=== PATIENT | female | born 1995 | race Caucasian/White ===

== ENCOUNTER 2017-07-11 07:42 | Outpatient (CLI) | payer OTHER ==
[~2017-07-11 07:42] MED LIST: ROBITUSSIN7.4 MG MM
== END 2017-07-11 13:56 | disposition home or self-care (01) ==
LOC: TOM 07:42
DX: R53.81 Other malaise (principal); R42 Dizziness and giddiness; R53.1 Weakness; Z11.3 Encounter for screening for infections with a predominantly sexual mode of transmission; R10.9 Unspecified abdominal pain

== ENCOUNTER → 2017-10-28 | Outpatient (CLI) | payer OTHER | END | disposition home or self-care (01) | LOC: TOM 08:27 | DX: Z00.00 Encounter for general adult medical examination without abnormal findings (principal); R51 Headache; R42 Dizziness and giddiness ==

== ENCOUNTER 2019-01-11 20:10 | Emergency (ER) | payer OTHER ==
[~2019-01-11] VITALS: Ht 167.6 cm; Wt 32.7 kg
[2019-01-12] MEDS ORDERED: DUI500 PO (02:16)
[2019-01-12] MEDS ORDERED: KETO10TA2 PO ×2 (02:17)
== END 2019-01-12 02:38 | disposition home or self-care (01) ==
LOC: ER 20:10
DX: N39.0 Urinary tract infection, site not specified (principal); R10.32 Left lower quadrant pain

== ENCOUNTER 2019-07-29 08:37 | Outpatient (CLI) | payer OTHER ==
[~2019-07-29 08:37] MED LIST changes: +DUI500 PO; +KETO10TA2 PO
== END 2019-07-29 08:53 | disposition home or self-care (01) ==
LOC: SONOGRAMA 08:37
DX: R80.8 Other proteinuria (principal); R63.8 Other symptoms and signs concerning food and fluid intake; R10.84 Generalized abdominal pain; R42 Dizziness and giddiness; R06.02 Shortness of breath

== ENCOUNTER 2020-07-21 08:03 | Outpatient (CLI) | payer OTHER | END 2020-07-21 08:29 | disposition HB | LOC: TOM 08:03 | DX: R42 Dizziness and giddiness (principal); R10.84 Generalized abdominal pain; R06.02 Shortness of breath; Z13.89 Encounter for screening for other disorder; Z13.220 Encounter for screening for lipoid disorders; Z11.3 Encounter for screening for infections with a predominantly sexual mode of transmission ==

== ENCOUNTER 2020-07-27 09:18 | Outpatient (CLI) | payer OTHER | END 2020-07-27 09:30 | disposition HB | LOC: RAD 09:18 | DX: R06.02 Shortness of breath (principal); R51.9 Headache, unspecified; R42 Dizziness and giddiness; Z13.89 Encounter for screening for other disorder; Z13.220 Encounter for screening for lipoid disorders; Z11.3 Encounter for screening for infections with a predominantly sexual mode of transmission; Z13.228 Encounter for screening for other metabolic disorders; Z13.1 Encounter for screening for diabetes mellitus ==

== ENCOUNTER 2020-08-02 08:07 | Outpatient (CLI) | payer OTHER | END 2020-08-02 08:37 | disposition home or self-care (01) | LOC: SONOGRAMA 08:07 | PROVIDERS: ATTEND General Practice | DX: N28.89 Other specified disorders of kidney and ureter (principal); R06.02 Shortness of breath; R80.8 Other proteinuria ==

== ENCOUNTER 2021-02-19 14:34 | Emergency (ER) | payer OTHER ==
[~2021-02-19] VITALS: Ht 167.6 cm; Wt 32.7 kg
[2021-02-19] MEDS ORDERED: AZITHROMYCIN500 MG PO (18:02)
[2021-02-19] MEDS ORDERED: MUCINEX DM ER1 EAC1 PO (18:02)
== END 2021-02-19 18:07 | disposition home or self-care (01) ==
LOC: ER 14:34
DX: B34.9 Viral infection, unspecified (principal); B96.0 Mycoplasma pneumoniae [M. pneumoniae] as the cause of diseases classified elsewhere; J06.9 Acute upper respiratory infection, unspecified

== ENCOUNTER 2022-04-28 17:22 | Emergency (ER) | payer OTHER ==
[~2022-04-28] VITALS: Ht 167.6 cm; Wt 33.1 kg
[~2022-04-28 17:22] MED LIST changes: +AZITHROMYCIN500 MG PO; +MUCINEX DM ER1 EAC1 PO
== END 2022-04-28 20:12 | disposition home or self-care (01) ==
LOC: ER 17:22
DX: U07.1 COVID-19 (principal)

== ENCOUNTER 2023-04-15 07:40 | Outpatient (CLI) | payer OTHER | END 2023-04-15 08:00 | disposition home or self-care (01) | LOC: SONOGRAMA 07:40 | DX: R42 Dizziness and giddiness (principal); K59.00 Constipation, unspecified; K29.70 Gastritis, unspecified, without bleeding ==

== ENCOUNTER 2023-12-03 01:44 | Emergency (ER) | payer OTHER ==
[~2023-12-03] VITALS: Ht 167.6 cm; Wt 44.0 kg
[2023-12-03] MEDS ORDERED: PRENA1 TRUE CO1 EACH PO (02:01)
[2023-12-03 05:03] LABS: HEMATOCRIT 35.2 % (36.0-45.00); HEMOGLOBIN 12.4 g/dL (12.0-15.00); MEAN CELL VOLUME 87.2 fL (80.00-100.00); MEAN CORPUSCULAR HEMOGLOBIN 30.8 pg (27.00-32.0); MEAN CORPUSCULAR HGB CONC 35.3 g/dl (32.0-36.0); PLATELET COUNT 179 K/uL (150-450); RED BLOOD COUNT 4.04 M/uL (4.00-6.00); RED CELL DISTRIBUTION WIDTH 13.5 % (11.5-14.5)
== END 2023-12-03 06:01 | disposition home or self-care (01) ==
LOC: ER 01:45
DX: O99.513 Diseases of the respiratory system complicating pregnancy, third trimester (principal); J06.9 Acute upper respiratory infection, unspecified; Z3A.36 36 weeks gestation of pregnancy; Z20.822 Contact with and (suspected) exposure to COVID-19

== ENCOUNTER 2023-12-08 14:07 | Inpatient (IN) | payer OTHER ==
[~2023-12-08] VITALS: Ht 167.6 cm; Wt 44.0 kg
[~2023-12-08 14:07] MED LIST changes: +PRENA1 TRUE CO1 EACH PO
[2023-12-08] MEDS ORDERED: OXYTOCIN 500 ML IV SCH (14:15)
[2023-12-08] MEDS ORDERED: MORPHINE SULFATE 4 MG/ML CARTRIDGE IV NR (14:15)
[2023-12-08] MEDS ORDERED: RINGERS SOLUTION,LACTATED 1,000 ML IV SCH (14:15)
[2023-12-08 14:59] LABS: PH,URINE 6.5 (5.0-8.0); URINE APPEARANCE Clear; URINE BILIRRUBIN Negative (NEGATIVE); URINE BLOOD Negative; URINE COLOR Yellow; URINE GLUCOSE Negative (NEGATIVE); URINE LEUKOCYTE Small; URINE NITRATE Negative; URINE PROTEIN Negative (NEGATIVE)
[2023-12-08 15:03] LABS: URINE BACTERIA 44.1 uL (0.0-1933); URINE RBC 5.3 uL (0.0-20.8); URINE WBC 41.2 uL (0.0-23.2)
[2023-12-08 15:31] LABS: INR < 0.93; PARTIAL THROMBOPLASTIN TIME 26.4 SECONDS (22.0-34.0); PROTHROMBIN TIME 8.9 SECONDS (9.0-11.5)
[2023-12-08 15:37] LABS: ALBUMIN 2.4 gm/dL (3.4-5.0); BILIRUBIN TOTAL 0.54 mg/dL (0.3-1.2); CALCIUM 8.7 mg/dL (8.5-10.1); CREATININE SERUM 0.48 mg/dL (0.55-1.02); GFR 157.58; GLOBULINA 3.3 G/DL (2.4-3.5); POTASSIUM 3.68 mEq/L (3.5-5.1); TOTAL PROTEIN 5.7 gm/dL (6.4-8.2)
[2023-12-08 15:52] LABS: HEMATOCRIT 34.4 % (36.0-45.00); HEMOGLOBIN 11.9 g/dL (12.0-15.00); MEAN CELL VOLUME 86.8 fL (80.00-100.00); MEAN CORPUSCULAR HGB CONC 34.6 g/dl (32.0-36.0); PLATELET COUNT 171 K/uL (150-450); RED BLOOD COUNT 3.97 M/uL (4.00-6.00); RED CELL DISTRIBUTION WIDTH 13.8 % (11.5-14.5)
[2023-12-08] MEDS ORDERED: IBUprofen 400 MG TABLET PO PRN (19:45)
[2023-12-08] MEDS ORDERED: ERYTHROMYCIN BASE 1 GM TUBE OP ONE (19:45)
[2023-12-08] MEDS ORDERED: OXYTOCIN 1,000 ML IV SCH (19:45)
[2023-12-08] MEDS ORDERED: CHLORHEXIDINE GLUCONATE 120 ML BOTTLE TOP ONE (19:45)
[2023-12-08] MEDS ORDERED: LIDOCAINE HCL 1% 10ML VIAL IJ ONE (19:45)
[2023-12-08 20:17] LABS: BASE EXCESS -3.3 mmol/l; BICARBONATE 22.1 mmol/l (23-25); SaO2 66.5 %; Tco2 23.4 mmol/l
[2023-12-08 20:18] LABS: o2 21 %
[2023-12-09 07:18] LABS: HEMATOCRIT 33.7 % (36.0-45.00); HEMOGLOBIN 11.8 g/dL (12.0-15.00); MEAN CELL VOLUME 87.3 fL (80.00-100.00); MEAN CORPUSCULAR HEMOGLOBIN 30.5 pg (27.00-32.0); MEAN CORPUSCULAR HGB CONC 34.9 g/dl (32.0-36.0); PLATELET COUNT 186 K/uL (150-450); RED BLOOD COUNT 3.86 M/uL (4.00-6.00); RED CELL DISTRIBUTION WIDTH 13.6 % (11.5-14.5)
[2023-12-09] MEDS ORDERED: PNV,CALCIUM 72/IRON/FOLIC ACID 1 TAB TABLET PO SCH (09:00)
== END 2023-12-10 11:00 | disposition home or self-care (01) | DRG 807 ==
LOC: LDR 14:07 → OB/GYN 14:07
PROVIDERS: Obstetrics & Gynecology; ADMIT Specialist; ATTEND Specialist
PROC: 10E0XZZ Delivery of Products of Conception, External Approach (ICD-10-PCS; principal; 2023-12-08)
PROC: 0UQG7ZZ Repair Vagina, Via Natural or Artificial Opening (ICD-10-PCS; 2023-12-08)
PROC: 4A1HXCZ Monitoring of Products of Conception, Cardiac Rate, External Approach (ICD-10-PCS; 2023-12-08)
DX: O71.4 Obstetric high vaginal laceration alone (principal); Z37.0 Single live birth; Z3A.37 37 weeks gestation of pregnancy; Z20.822 Contact with and (suspected) exposure to COVID-19

== ENCOUNTER → 2025-01-12 | Emergency (ER) | payer OTHER ==
[~2025-01-12] VITALS: Ht 167.6 cm; Wt 38.1 kg
== END | disposition left against medical advice (07) ==
LOC: ER 14:05
DX: Z53.21 Procedure and treatment not carried out due to patient leaving prior to being seen by health care provider (principal)

== ENCOUNTER 2025-05-20 14:30 | Inpatient (IN) | payer OTHER ==
[~2025-05-20] VITALS: Ht 167.6 cm; Wt 45.4 kg
[2025-05-22] VITALS (8 sets, daily range): BP systolic 106–130; BP diastolic 58–76
[2025-05-22] MEDS ORDERED: ERYTHROMYCIN BASE OPHT 1GM EACH TUBE OP ONE ×2 (08:18→09:15)
[2025-05-22] MEDS ORDERED: LIDOCAINE HCL 1% 10ML VIAL ONE (08:18)
[2025-05-22] MEDS ORDERED: CHLORHEXIDINE GLUCONATE 120 ML BOTTLE TOP ONE ×2 (08:18→09:15)
[2025-05-22] MEDS ORDERED: OXYTOCIN 20 UNITS/1000ML RL PIGGYBAG IV ONE (08:18)
[2025-05-22 08:49] LABS: BASO % 0.3 % (0.1-1.2); EOS # 0.33 (0.04-0.54); EOS % 1.9 % (0.7-7.0); LYMPH # 2.51 (1.18-3.74); LYMPH % 14.1 % (19.3-53.1); MEAN PLATELET VOLUME 11.30 fl (9.4-12.4); MONO # 1.09 (0.24-0.82); MONO % 6.1 % (4.7-12.5); NEUT # 13.57 (1.56-6.13); NEUT % 76.1 % (34.0-71.1); RED CELL DISTRIBUTION WIDTH 14.3 % (11.6-14.4)
[2025-05-22] MEDS ORDERED: RINGERS SOLUTION,LACTATED 1,000 ML IV SCH (09:00)
[2025-05-22 09:08] LABS: INR < 0.93
[2025-05-22] MEDS ORDERED: OXYTOCIN 1,000 ML IV SCH (09:15)
[2025-05-22] MEDS ORDERED: ACETAMINOPHEN 500 MG GEL..CAP PO PRN (09:15)
[2025-05-22 09:42] LABS: ALT/SGPT 12.0 U/L (12-78); AST/SGOT 20.0 U/L (15-37); BILIRUBIN TOTAL 0.46 mg/dL (0.3-1.2); BUN CREA RATIO 18.0 (7.0-25.0); CREATININE SERUM 0.45 mg/dL (0.55-1.02); GFR 167.13; GLOBULINA 3.6 G/DL (2.4-3.5); GLUCOSE FASTING 113.0 mg/dL (65-100); OSMOLALITY SERUM 279.0 MOSM/KG (275-295)
[2025-05-22] MEDS ORDERED: HYDROCORTISONE 2.5% 30 GM TUBE RECTAL SCH (13:00)
[2025-05-22] MEDS ORDERED: BENZOCAINE/MENTHOL 90 ML BOTTLE TOP SCH (13:00)
[2025-05-23 00:08] VITALS: BP 104/67
[2025-05-23 00:41] LABS: BASO % 0.2 % (0.1-1.2); EOS # 0.21 (0.04-0.54); EOS % 1.1 % (0.7-7.0); LYMPH # 1.69 (1.18-3.74); LYMPH % 8.8 % (19.3-53.1); MEAN PLATELET VOLUME 11.00 fl (9.4-12.4); MONO # 1.32 (0.24-0.82); MONO % 6.9 % (4.7-12.5); NEUT # 15.83 (1.56-6.13); NEUT % 82.3 % (34.0-71.1); RED CELL DISTRIBUTION WIDTH 14.3 % (11.6-14.4)
[2025-05-23 08:36] VITALS: BP 107/67
[2025-05-23 17:19] VITALS: BP 106/67
[2025-05-23 23:19] VITALS: BP 109/65
[2025-05-24 09:24] VITALS: BP 102/65; O2SAT 0
== END 2025-05-24 11:26 | disposition home or self-care (01) | DRG 807 ==
LOC: OB/GYN 05-22 08:07 → LDR 05-22 08:07 → OB/GYN 05-22 09:47
PROVIDERS: ADMIT Specialist; ATTEND Specialist
PROC: 10E0XZZ Delivery of Products of Conception, External Approach (ICD-10-PCS; principal; 2025-05-22)
PROC: 4A1HXCZ Monitoring of Products of Conception, Cardiac Rate, External Approach (ICD-10-PCS; 2025-05-22)
DX: O80 Encounter for full-term uncomplicated delivery (principal); Z37.0 Single live birth; Z3A.39 39 weeks gestation of pregnancy